=== PATIENT | female | born 1965 | race Caucasian/White ===

== ENCOUNTER → 2017-02-15 | Outpatient (CLI) | payer BC ==
--- NOTE | 2017-02-15 09:17 | REP ---
LEFT SHOULDER THREE VIEWS: HISTORY: Shoulder pain. There is no acute fracture or dislocation. The joint spaces are normal in appearance. IMPRESSION: There is no acute fracture or dislocation.
== END ==
LOC: M CLY 08:15
PROVIDERS: ATTEND Chiropractor
DX: M25.512 Pain in left shoulder (principal)

== ENCOUNTER → 2018-07-24 | Outpatient (CLI) | payer OTHER ==
--- NOTE | 2018-07-24 12:47 | REP ---
Lumbar spine series: Five views: History: Pain in the low back and bilateral shoulders. Findings: Lumbar vertebral body heights are preserved. Alignment is normal. There is no evidence of spondylolysis or spondylolisthesis. There is degenerative narrowing of the L3-4 and L4-5 disc spaces with anterior osteophyte formation at these levels. Degenerative disc spurring is seen at the anterior lower thoracic disc margins as well. Mild facet hypertrophy is noted L5-S1 bilaterally. Sacrum and SI joints are intact. There are clips in the right upper quadrant of the abdomen. Impression: Mild degenerative spondylosis changes as noted above. Electronically Signed by García Campos MD 07/24/2018 12:54 P
--- NOTE | 2018-07-24 13:43 | REP ---
Clinical: Bilateral shoulder pain. Technique: Internal rotation, external rotation, and Y view of the right and left shoulder. Findings: Right shoulder demonstrates cortical irregularity and spurring at the acromioclavicular joint as well as very subtle blunting along the glenoid rim with inferior spurring. Subacromial space is normal. No acute fracture or dislocation. Left shoulder demonstrates relatively normal appearance to the acromioclavicular joint and subacromial space. Mild blunting to the calcified glenoid rim noted. No acute fracture or dislocation. Impression: Mild arthritic changes (right greater than left). Electronically Signed by Davie Mooney MD 07/24/2018 01:34 P
== END ==
LOC: M SMT 12:08
PROVIDERS: ATTEND Physician Assistant
DX: M25.512 Pain in left shoulder (principal); M25.511 Pain in right shoulder; M47.896 Other spondylosis, lumbar region

== ENCOUNTER 2021-10-08 12:13 | Emergency (ER) | payer BC ==
[~2021-10-08] VITALS: Ht 162.6 cm; Wt 88.5 kg
[2021-10-08] MEDS ORDERED: ALPR0.5T3 (12:33)
[2021-10-08] MEDS ORDERED: ROSU10TA6 (12:33)
[2021-10-08] MEDS ORDERED: ASPI-226 (12:33)
[2021-10-08] MEDS ORDERED: BUPR-71 (12:33)
[2021-10-08] MEDS ORDERED: LOSA50TA5 (12:33)
[2021-10-08] MEDS ORDERED: VENL150C43 (12:33)
[2021-10-08] MEDS ORDERED: NS 1,000 ML IV ONE (15:40)
[2021-10-08] MEDS ORDERED: ISOVUE-370 76% 100ML VIAL As Ordered ONE (15:48)
[2021-10-08 16:41] LABS: BILIRUBIN,DIRECT 0.2 MG/DL (0.0-0.2); BILIRUBIN,TOTAL 0.6 MG/DL (0.2-1.0); TOTAL PROTEIN 7.7 GM/DL (6.4-8.2)
[2021-10-08 16:42] LABS: MB/CK RELATIVE INDEX 1.81 (< OR =4)
[2021-10-08 17:58] LABS: MB/CK RELATIVE INDEX 2.29 (< OR =4)
[2021-10-08 18:10] LABS: RSV AMPLIFICATION NEGATIVE (NEGATIVE)
[2021-10-08] MEDS ORDERED: PROAAER10 INH ×2 (18:53→19:27)
[2021-10-08 19:30] VITALS: BP 142/98
== END 2021-10-08 19:32 | disposition home or self-care (01) ==
LOC: M ED 12:13
DX: R06.09 Other forms of dyspnea (principal); M51.9 Unspecified thoracic, thoracolumbar and lumbosacral intervertebral disc disorder; I45.81 Long QT syndrome; R79.82 Elevated C-reactive protein (CRP); I10 Essential (primary) hypertension; E78.5 Hyperlipidemia, unspecified; F32.9 Major depressive disorder, single episode, unspecified; F41.9 Anxiety disorder, unspecified; F17.200 Nicotine dependence, unspecified, uncomplicated
CPT/HCPCS: 71275; 80076; 82550; 82553; 83880; 84484; 87631; 93005; 96360; 99284; Q9967

== ENCOUNTER → 2021-10-08 | Outpatient (CLI) | payer BC ==
[~2021-10-08] MED LIST: ALPR0.5T3; ASPI-226; BUPR-71; LOSA50TA5; PROAAER10 INH; ROSU10TA6; VENL150C43
[2021-10-08 12:58] LABS: BASO % 0.5 % (0.0-1.0); EOS # 0.1 10^3/uL (0.0-0.5); HEMATOCRIT 42.6 % (36.0-47.0); LYMPH # 2.3 10^3/uL (1.5-5.0); LYMPH % 29.5 % (24.0-44.0); MEAN CORPUSCULAR HGB CONC 32.9 g/dl (32.0-36.5); MONO # 0.6 10^3/uL (0.0-0.8); MONO % 7.8 % (2.0-8.0); NEUTROPHILS # 4.8 10^3/uL (1.5-8.5); NEUTROPHILS % 60.8 % (36.0-66.0); PLATELET COUNT, AUTOMATED 336 10^3/uL (150-450); RED BLOOD COUNT 5.39 10^6/uL (4.00-5.40); WHITE BLOOD COUNT 7.9 10^3/uL (4.0-10.0)
[2021-10-08 13:15] LABS: BLOOD UREA NITROGEN 14 MG/DL (7-18); CALCIUM LEVEL 9.1 MG/DL (8.5-10.1); CARBON DIOXIDE LEVEL 26 MEQ/L (21-32); CHLORIDE LEVEL 106 MEQ/L (98-107); CREATININE FOR GFR 0.95 MG/DL (0.55-1.30); GLOMERULAR FILTRATION RATE > 60.0 (>51); GLUCOSE, FASTING 82 MG/DL (70-100); POTASSIUM SERUM 3.4 MEQ/L (3.5-5.1); SODIUM LEVEL 142 MEQ/L (136-145)
== END ==
LOC: M WUC 11:12
PROVIDERS: ATTEND Physician Assistant
DX: R06.02 Shortness of breath (principal); K44.9 Diaphragmatic hernia without obstruction or gangrene

== ENCOUNTER 2022-04-19 13:15 | Emergency (ER) | payer BC ==
[~2022-04-19] VITALS: Ht 162.6 cm; Wt 88.5 kg
[2022-04-19 16:44] LABS: BASO % 0.6 % (0.0-1.0); EOS # 0.1 10^3/uL (0.0-0.5); EOS % 2.1 % (0.0-3.0); HEMATOCRIT 32.9 % (36.0-47.0); HEMOGLOBIN 10.1 g/dl (12.0-15.5); LYMPH # 1.7 10^3/uL (1.5-5.0); LYMPH % 36.3 % (24.0-44.0); MEAN CORPUSCULAR HEMOGLOBIN 24.3 pg (27.0-33.0); MEAN CORPUSCULAR HGB CONC 30.7 g/dl (32.0-36.5); MEAN CORPUSCULAR VOLUME 79.1 fl (80.0-96.0); MONO # 0.3 10^3/uL (0.0-0.8); MONO % 6.9 % (2.0-8.0); NEUTROPHILS # 2.5 10^3/uL (1.5-8.5); NEUTROPHILS % 53.9 % (36.0-66.0); PLATELET COUNT, AUTOMATED 334 10^3/uL (150-450); RED BLOOD COUNT 4.16 10^6/uL (4.00-5.40); WHITE BLOOD COUNT 4.7 10^3/uL (4.0-10.0)
[2022-04-19 17:05] LABS: CK-MB VALUE MASS 4.2 NG/ML (<3.6); MB/CK RELATIVE INDEX 1.83 (< OR =4)
[2022-04-19 17:09] LABS: ALBUMIN 3.6 GM/DL (3.2-5.2); ALT/SGPT 39 U/L (12-78); BILIRUBIN,DIRECT < 0.1 MG/DL (0.0-0.2); BILIRUBIN,TOTAL 0.3 MG/DL (0.2-1.0); BLOOD UREA NITROGEN 12 MG/DL (7-18); CALCIUM LEVEL 9.4 MG/DL (8.5-10.1); CARBON DIOXIDE LEVEL 28 MEQ/L (21-32); CHLORIDE LEVEL 106 MEQ/L (98-107); CREATININE FOR GFR 0.62 MG/DL (0.55-1.30); GLOMERULAR FILTRATION RATE > 60.0 (>51); GLUCOSE, FASTING 92 MG/DL (70-100); LIPASE 216 U/L (73-393); POTASSIUM SERUM 3.3 MEQ/L (3.5-5.1); SODIUM LEVEL 140 MEQ/L (136-145); TOTAL PROTEIN 7.1 GM/DL (6.4-8.2)
[2022-04-19] MEDS ORDERED: METOCLOPRAMIDE INJ 10MG/2ML VIAL (J2765 PER 1) IV ONE (20:15)
[2022-04-19] MEDS ORDERED: NS 1,000 ML IV ONE (20:15)
[2022-04-19 21:39] LABS: INR 0.88; PROTHROMBIN TIME 12.1 SECONDS (12.5-14.5)
[2022-04-19] MEDS: GASTROGRAFIN SOLUTION 30ML PO SCH ×2 (21:46→22:22)
[2022-04-19 21:49] VITALS: BP 140/76
[2022-04-19] MEDS ORDERED: ISOVUE-370 76% 100ML VIAL As Ordered ONE (22:39)
[2022-04-20] MEDS ORDERED: FAMO10TA50 PO (00:27)
[2022-04-20] MEDS ORDERED: OMEP-173 PO (00:27)
[2022-04-20] MEDS ORDERED: ONDA4TAB6 PO (00:27)
[2022-04-20 00:33] LABS: FERRITIN 8 NG/ML (8-252); IRON (FE) 22 UG/DL (50-170); PERCENT SATURATION 5.5 % (13.2-45.0); TOTAL IRON BINDING CAPACITY 403 UG/DL (250-450)
== END 2022-04-20 00:45 | disposition home or self-care (01) ==
LOC: M ED 13:15
DX: R10.13 Epigastric pain (principal); R07.89 Other chest pain; R11.2 Nausea with vomiting, unspecified; R63.4 Abnormal weight loss; K57.30 Diverticulosis of large intestine without perforation or abscess without bleeding; Z79.82 Long term (current) use of aspirin; Z79.899 Other long term (current) drug therapy
CPT/HCPCS: 71045; 74177; 80053; 82248; 82550; 82553; 82728; 83550; 83690; 84484; 85025; 85610; 93005; 99284; J2765; Q9963; Q9967